=== PATIENT | male | born 1945 | race Caucasian/White ===

== ENCOUNTER → 2025-09-03 11:20 | Outpatient (REF) | payer OTHER, SELFPAY | LOC: HWRCS 11:20 | PROVIDERS: ATTENDING PHYSICIAN Nurse Practitioner; FAMILY PHYSICIAN Family Medicine | DX: R93.1 Abnormal findings on diagnostic imaging of heart and coronary circulation (principal) | CPT/HCPCS: 78452; 93017; A9500 ==

== ENCOUNTER → 2025-09-05 10:42 | Outpatient (REF) | payer OTHER, SELFPAY ==
[2025-09-05 11:19] LABS: Hematocrit 47.1 % (39.0-52.0); Hemoglobin 15.4 g/dL (13.0-18.0); Mean Corp Hgb Conc. 32.7 g/dL (33.0-37.0); Mean Corpuscular Volume 94.8 fL (80.0-94.0); Nucleated Red Blood Cells % 0 % (-); Platelet Count 264 10^3/uL (130-400); Red Cell Dist. Width 13.3 % (11.5-14.5)
[2025-09-05 11:35] LABS: INR 0.91; PT 12.8 Sec (11.4-14.6)
[2025-09-05 12:03] LABS: Blood Urea Nitrogen 20 mg/dl (9-20); Calcium 9.9 mg/dl (8.4-10.2); Carbon Dioxide 30 mmol/L (22-30); Chloride 103 mmol/L (98-107); Glucose 108 mg/dl (70-99); Potassium 4.5 mmol/L (3.5-5.1); Sodium 139 mmol/L (135-145); eGFR > 60.00
== END ==
LOC: REG 10:42
PROVIDERS: ATTENDING PHYSICIAN Nurse Practitioner
DX: R03.0 Elevated blood-pressure reading, without diagnosis of hypertension (principal); R93.1 Abnormal findings on diagnostic imaging of heart and coronary circulation; R94.39 Abnormal result of other cardiovascular function study
CPT/HCPCS: 36415; 71046; 80048; 85025; 85610

== ENCOUNTER 2025-09-12 06:15 | Day surgery (SDC) | payer OTHER, SELFPAY ==
[2025-09-12] VITALS (14 sets, daily range): BP systolic 115–159; BP diastolic 62–89; BMI 28.5
[2025-09-12] MEDS: LOW STRENGTH ASPIRIN 81 MG PO (07:06)
[2025-09-12] MEDS: NSS 1000 IV (08:27)
--- NOTE | 2025-09-12 09:45 | ITS.CL.CATH ---
[facility] - Catheterization
Cardiac Catheterization
Procedure Report:
LEFT HEART CATHETERIZATION
Date of Procedure: September 12, 2025
Procedures performed:
1: Coronary angiography
2: Left ventricular hemodynamic assessment
Primary Care Physician: Dr. Gail Gamez
Primary Process Server: Dr. Marcus Davison
INDICATION: The patient is an 79-year-old man with a past medical history significant for hypertension. He was noted to have heavy calcification of his femoral vessels on CAT scanning done in preparation for knee replacement surgery which was
performed earlier this year without complication. A calcium score was performed and was markedly elevated. This led to a nuclear perfusion stress test which was high risk and suggestive of multivessel coronary disease with myocardial perfusion
imaging suggestive of ischemia in the inferior, inferolateral, distal anterior and entire apical cap. Echocardiography showed normal LV systolic function with no significant valvular heart disease. The patient is fairly active and denies any
typical angina. He was noted to have some chest discomfort during the stress test but has not reported any symptoms since then. He was started on medical therapy with amlodipine and metoprolol along with statin and aspirin.
ACCESS: The patient was prepped and draped in usual sterile fashion. A 6 Thai sheath was placed in the right radial artery using the Seldinger over the wire technique.
HEMODYNAMIC FINDINGS (mmHg):
LV(s/d,EDP): 134/7, 11
Ao(s/d,m): 135/73, 101
ANGIOGRAPHIC FINDINGS:
Single-plane Left Ventriculography in SILVA Projection: Not done.
Coronary Angiography:
Dominance: Right
Left Main: The left main and proximal and mid LAD is heavily calcified throughout with diffuse circumferential calcification. The left main itself appears to have a tubular 30 to 40% diffuse stenosis.
Left Anterior Descending: The left anterior descending artery is a medium caliber vessel that gives rise to 1 major high diagonal branch and a smaller second agonal branch that takes off from the midportion. The proximal LAD is heavily calcified
throughout with smooth diffuse 40 to 50% proximal disease. The first diagonal branch has a high takeoff and is a large vessel that has moderate proximal disease with normal distal flow and appears to be a good surgical target. The LAD after the
takeoff of the diagonal branch has smooth disease with a focal 80% stenosis. The remainder of the vessel is patent with mild luminal irregularities. The distal LAD has normal flow.
Left Circumflex: The left circumflex is a medium caliber vessel that has diffuse proximal 50% disease. OM1 is a relatively small vessel that has critical ostial disease and may actually fill via bridging collaterals. This vessel appears too small
to bypass. The circumflex terminates into large second obtuse marginal branch that has diffuse moderate luminal irregularities with normal flow. There are 2 very well-developed large caliber collaterals that supply a very large right sided
posterior left ventricular branch system.
Right Coronary: The right coronary artery is a nondominant vessel with diffusely diseased and occluded at the acute margin. All distal collaterals come from the left.
Fluoroscopy Time (min): 2.9
Radiation Dose (mGy): 348
DAP (Gy.cm2): 28
Closure device: None. A TR band was applied for hemostasis at the right wrist.
Complications: None.
ASSESSMENT:
1: Severe obstructive multivessel coronary disease with good surgical targets in the right, LAD, diagonal and distal OM 2
2: Normal left ventricular filling pressures.
CONCLUSIONS and RECOMMENDATIONS:
1: Formal CT surgical evaluation for CABG. Given the fact that he is asymptomatic with normal LV function, we could consider medical therapy however his nuclear stress test was clearly high risk and this anatomy explains it.
2: Close clinical follow-up with Dr. Davison as scheduled.
Shelbi Van M.D.
Copy to: Dr. Gail Gamez
== END 2025-09-12 11:28 | disposition home or self-care (01) ==
LOC: CATH 06:15
PROVIDERS: ATTENDING PHYSICIAN Internal Medicine Cardiovascular Disease; FAMILY PHYSICIAN Family Medicine
DX: I25.10 Atherosclerotic heart disease of native coronary artery without angina pectoris (principal); I10 Essential (primary) hypertension; Z79.899 Other long term (current) drug therapy
CPT/HCPCS: 93458; C1769; C1894; Q9967

== ENCOUNTER 2025-09-24 05:03 | Inpatient (IN) | payer OTHER, SELFPAY ==
[2025-09-18 08:33] VITALS: BMI 28.9
[2025-09-18 09:29] LABS: Hematocrit 46.7 % (39.0-52.0); Hemoglobin 15.8 g/dL (13.0-18.0); Mean Corp Hgb Conc. 33.8 g/dL (33.0-37.0); Mean Corpuscular Volume 92.1 fL (80.0-94.0); Nucleated Red Blood Cells % 0 % (-); Platelet Count 274 10^3/uL (130-400); Red Cell Dist. Width 13.1 % (11.5-14.5)
[2025-09-18 09:33] LABS: Urine Character Clear (Clear)
[2025-09-18 09:41] LABS: INR 0.99; PT 13.4 Sec (11.4-14.6)
[2025-09-18 10:04] LABS: ALT (SGPT) 23 U/L (0-50); AST (SGOT) 22 U/L (17-59); Albumin 4.4 g/dl (3.5-5.0); Alkaline Phosphatase 66 U/L (38-126); Blood Urea Nitrogen 19 mg/dl (9-20); Calcium 9.6 mg/dl (8.4-10.2); Carbon Dioxide 25 mmol/L (22-30); Chloride 104 mmol/L (98-107); Estimated Creatinine Clearance 58 ml/min; Glucose 129 mg/dl (70-99); Potassium 3.9 mmol/L (3.5-5.1); Sodium 138 mmol/L (135-145); Total Protein 6.8 g/dl (6.3-8.2); eGFR > 60.00
[2025-09-18 10:38] LABS: Glycohemoglobin (HgbA1c) 5.6 % (4.0-5.9)
--- NOTE | 2025-09-18 11:13 | CM ---
spoke to pt in PAT, we discussed preop CABG teaching including sternal and driving restrictions. he is prev indep, lvies with his in a 2 story home with 1 step to enter. he has a cane and a walker to use if needed. he has the cardiac educ book,
soap and instructions. he is agreeable to a f/u visit from the ct transitional care nurse after dc. plan is for CABG 09/24, cm role explained and all questions answered.
[2025-09-24] VITALS (20 sets, daily range): BP systolic 82–157; BP diastolic 56–96; BMI 28.5
[2025-09-24] MEDS: BACTROBAN 2% OINTMENT 1 APPLIC NASAL ×2 (06:00→21:12)
[2025-09-24] MEDS: LOPRESSOR 25 MG PO (06:01)
[2025-09-24] MEDS: MAGNESIUM OXIDE 400 MG PO (06:01)
[2025-09-24] MEDS: PROTONIX 40 MG PO (06:02)
--- NOTE | 2025-09-24 06:09 | W.CVOR.SURPR ---
CVOR Surgeon Immed Pre Op
-
I have examined this patient prior to performance of the scheduled procedure.
The patient's condition is unchanged from the time of the dictated/written History and
Physical and the patient is able to undergo the scheduled procedure.
CABG + LAAE
--- NOTE | 2025-09-24 06:35 | PTCARENOTE ---
Pt admitted to CVICU at 0504. Pt's VS done. Pt clipped/prepped per CVICU protocol. Admission questions done. at bedside. Dr. Keys in to see pt. Pt escorted to CVICU at 0630 by CVOR RN and MEDICAL LAB DIRECTOR.
[2025-09-24 07:26] LABS: Urine Character Slightly Cloudy (Clear)
[2025-09-24 07:29] LABS: ACT+ - POC 118 Seconds (82-134)
[2025-09-24 08:03] LABS: Urine Squamous Cell 0-2 /LPF (Few)
[2025-09-24 08:04] LABS: Urine Red Blood Cell 26-30 /HPF (0-2); Urine White Cell 0-2 /HPF (0-5)
--- NOTE | 2025-09-24 08:28 | CM ---
Reviewed chart. Mr. Inman is in the operating room today. Prior to admission he resides with his spouse in a two story home with one step to enter. Prior to admission he was independent with ambulation and adls. He has a walker and single point
cane at home. Medical work-up in progress. The discharge plan is to return home with his spouse and a home visit by the Transitional Care Nurse when medically stable.
[2025-09-24 08:55] LABS: B.E. - POC -1.8 mmol/L; Glucose - POC 102 mg/dl (70-99); HCO3 - POC 23 mmol/L (21-28); Hematocrit - POC 38 % PCV (42-52); Hemodilution- POC No; Hemoglobin Calculated - POC 13.0; Ionized Calcium - POC 1.18 mmol/L (1.15-1.33); Lactate - POC 0.79 mmol/L (0.36-0.75); O2 Saturation %Calculated-POC 99.3 % (94-98); PCO2 - POC 36 mmHg (35-48); PO2 - POC 146 mmHg (83-108); POC Comment PRE; Potassium - POC 3.8 mmol/L (3.5-5.1); Sodium - POC 138 mmol/L (136-145); Specimen Type - POC Arterial; pH - POC 7.40 (7.35-7.45)
[2025-09-24 09:17] LABS: ACT+ - POC 845 Seconds (82-134)
[2025-09-24 09:31] LABS: ACT+ - POC 492 Seconds (82-134)
[2025-09-24 09:54] LABS: B.E. - POC 1.7 mmol/L; Glucose - POC 125 mg/dl (70-99); HCO3 - POC 25 mmol/L (21-28); Hematocrit - POC 32 % PCV (42-52); Hemodilution- POC Yes; Hemoglobin Calculated - POC 10.8; Ionized Calcium - POC 1.06 mmol/L (1.15-1.33); Lactate - POC 1.05 mmol/L (0.36-0.75); O2 Saturation %Calculated-POC 99.8 % (94-98); PCO2 - POC 32 mmHg (35-48); PO2 - POC 191 mmHg (83-108); POC Comment CPB; Potassium - POC 5.2 mmol/L (3.5-5.1); Sodium - POC 137 mmol/L (136-145); Specimen Type - POC Arterial; pH - POC 7.49 (7.35-7.45)
[2025-09-24 10:06] LABS: ACT+ - POC 674 Seconds (82-134)
[2025-09-24 10:16] LABS: B.E. - POC 1.0 mmol/L; Glucose - POC 145 mg/dl (70-99); HCO3 - POC 24 mmol/L (21-28); Hematocrit - POC 32 % PCV (42-52); Hemodilution- POC Yes; Hemoglobin Calculated - POC 10.8; Ionized Calcium - POC 1.05 mmol/L (1.15-1.33); Lactate - POC 1.28 mmol/L (0.36-0.75); O2 Saturation %Calculated-POC 99.9 % (94-98); PCO2 - POC 32 mmHg (35-48); PO2 - POC 274 mmHg (83-108); POC Comment WARM; Potassium - POC 5.1 mmol/L (3.5-5.1); Sodium - POC 138 mmol/L (136-145); Specimen Type - POC Arterial; pH - POC 7.49 (7.35-7.45)
[2025-09-24 10:22] LABS: ACT+ - POC 159 Seconds (82-134)
--- NOTE | 2025-09-24 10:31 | CON.INTV ---
Consultation
Consultation Request
Date/Time Consultation Requested: 09/24/2025 - 1025
Date/Time Consultation Performed: 09/24/2025 - 1029
Requesting Provider: Desiree Wood PA-C
Performing Provider: Dr. Pretty
Reason for Consultation: s/p CABG
Medical History
-
Chief Complaint: Elective CABG
History of Present Illness:
79-year-old male with a past medical history of CAD, gout and hypertension who presents for elective CABG. Patient known to cardiothoracic surgery service, with last office visit on 09/17/[address] Keys. Patient previously had a abnormal CT
calcium score study, which led to him getting a nuclear sestamibi stress test on 09/03/2025. Patient achieved 7 METS with 99% of maximum predicted heart rate although with below average exercise tolerance and the stress EKG was positive for
ischemia. Patient then underwent a left heart catheterization on 09/12/2025 showing severe obstructive multivessel CAD with normal LV filling pressures (LVEDP: 11 mmHg). Patient does have a good functional status, being active in sports including
softball and can tolerate daily activities without limitation. After further multidisciplinary team discussion, patient was recommended to undergo surgical revascularization, which the patient agreed to. Today, patient underwent CABG x 4 with left
atrial appendage ligation with a 35mm clip. Patient tolerated the procedure well, and was transferred to the CVICU postoperatively, with Hand Touch Up Painter service consulted for additional management/recommendations.
When I saw the patient, he had continued to be intubated on SIMV at 16/500/40%/5, with PIP 11 cmH2O, VTe 439 cc and breathing at 33 breaths/min. He is easily arousable/calm although still overall lethargic. Current heart rate 68, BP via A-line:
102/63, BP via NIBP: 109/73 + SpO2 100%. He has a left pleural chest tube x 1 as well as mediastinal chest tubes x 2. Currently on insulin drip at 0.6 units/hr and on Levophed at 8 mcg/min.
PMHx: Gout, hypertension, CAD
PSHx: Right knee replacement + left knee replacement, cataract removal, prostate biopsy, cardiac cath
Past Medical History
Past Medical History: Other (Above as per HPI)
Past Surgical History: Other (Above as per HPI)
Social History
Tobacco: Former Smoker (Quit smoking in 1972)
Alcohol: Occasional (1 drink per week)
Drug: None
Employment: Retired
Family History
Family History: Hypertension (Father)
Allergies / Home Medications
Allergies
Allergy/AdvReac Type Severity Reaction Status Date / Time
iodine povacrylex (From Allergy Intermediate Hives Verified 09/24/25 09:27
DuraPrep)
isopropyl alcohol (From Allergy Intermediate Hives Verified 09/24/25 09:27
DuraPrep)
Home Medications
�Medication �Instructions �Recorded �Confirmed �Last Taken �Type
allopurinol 100 mg tablet 100 mg PO DAILY 09/12/25 09/24/25 09/23/25 08:30 History
amlodipine 2.5 mg tablet 2.5 mg PO DAILY 09/12/25 09/24/25 09/21/25 08:30 History
aspirin 81 mg tablet 81 mg PO DAILY 09/12/25 09/24/25 09/23/25 08:30 History
metoprolol succinate 25 mg 25 mg PO DAILY 09/12/25 09/24/25 09/23/25 09:00 History
tablet,extended release 24 hr
rosuvastatin 20 mg tablet 20 mg PO DAILY 09/12/25 09/24/25 09/23/25 08:30 History
Review of Systems
-
Unable to Obtain full review of systems at this time due to: Patient Intubation
Vitals / Labs / Diagnostic Testing
Vital Signs
Temp Pulse Resp BP Pulse Ox
98.1 F 90 18 157/89 96
09/24/25 05:04 09/24/25 06:01 09/24/25 05:04 09/24/25 06:01 09/24/25 05:05
Diagnostic Testing:
Physical Exam
-
HEENT: Normocephalic, Anicteric and Other (ETT in place)
Cardiovascular: S1/S2 and Peripheral Edema (negative)
Respiratory: Wheeze (negative), Rhonchi (negative), Non-Labored Respirations, Other (Mechanical breath sounds heard bilaterally) and Other (Mediastinal chest tubes x 2 and left pleural chest tube x 1)
GI: Soft, Non Distended, Non Tender and Normal Bowel Sounds
Neurology: Tremors (negative) and Other (Sedated)
Skin: Warm and Dry
General: Respiratory Distress (negative), Comfortable, Fever (negative) and Chills (negative)
Assessment
-
Assessment: 79-year-old male with a past medical history of CAD, gout and hypertension who presents for elective CABG. Patient known to cardiothoracic surgery service, with last office visit on 09/17/[address] Keys. Patient previously had a
abnormal CT calcium score study, which led to him getting a nuclear sestamibi stress test on 09/03/2025. Patient achieved 7 METS with 99% of maximum predicted heart rate although with below average exercise tolerance and the stress EKG was positive
for ischemia. Patient then underwent a left heart catheterization on 09/12/2025 showing severe obstructive multivessel CAD with normal LV filling pressures (LVEDP: 11 mmHg). Patient does have a good functional status, being active in sports
including softball and can tolerate daily activities without limitation. After further multidisciplinary team discussion, patient was recommended to undergo surgical revascularization, which the patient agreed to. Today, patient underwent CABG x 4
with left atrial appendage ligation with a 35mm clip. Patient tolerated the procedure well, and was transferred to the CVICU postoperatively, with Hand Touch Up Painter service consulted for additional management/recommendations
Chronic conditions LITIGATION SECRETARY: Gout, hypertension, CAD
Impression:
#Multivessel CAD s/p CABG x 4 (in-situ CARRION to LAD, Ao to RSVG to high diagonal sequential to OM, Ao to RSVG to RPDA) + left atrial appendage ligation with 35mm clip - POD #0
#Hypocalcemia
#Right upper lobe 4mm lung nodule (seen on pre-operative CT chest from 09/20/2025)
#Hypertension
#Gout
Plan:
Ventilator settings reviewed
FiO2 will be weaned to maintain SpO2 >90-94%
Minute ventilation will be adjusted
Arterial blood gases will be monitored
Spontaneous breathing trial will be attempted with hopeful extubation after anesthesia/sedation wear off
prn nebulized bronchodilators - not currently bronchospastic
Pulmonary artery catheter parameters will be followed
Pressors/antihypertensive/inotropes/diuretics will be provided as needed
Maintain MAP>65
Replete electrolytes with K>4, Mg>2
Monitor chest tube output
Monitor hemoglobin
Monitor platelet count and coags
Transfuse blood products as needed to maintain Hb>7g/dL, plt>50k (given post-operative status)
CT surgery managing chest tubes
Monitor blood sugar to maintain euglycemia with goal BG 110-140
Insulin drip per protocol
Regarding patient's small lung nodule seen in his posterior RUL from recent CT chest on 09/20/2025, I will see him in the pulmonary office to discuss next apps.
Aspiration precautions
VAP prevention protocol
DVT prophylaxis
Early nutrition
Early mobilization
Critical care statement: A total of 41 minutes of critical care time was provided for this patient today. This includes management of ventilator, spontaneous breathing trial, arterial blood gases, pressors, of unstable vital signs, evaluation of the
patient at bedside, reviewing the patient's pertinent medical records including radiographs, microbiology, laboratory evaluations, and discussion with primary team and critical care nursing.
--- NOTE | 2025-09-24 10:35 | W.PN.CT.SURG ---
CT Surgery Operative Note
-
CARDIAC SURGERY OPERATIVE REPORT
Preoperative Diagnosis: Multivessel Coronary Artery Disease with abnormal stress test
Postoperative Diagnosis: Same
Procedure(s) Performed:
1. Standard Sternotomy with Aortic and Right Atrial Cannulation
2. Internal Mammary Artery Harvesting, Left
3. Coronary artery bypass grafting x 4 (In situ CARRION to LAD, Ao to RSVG to high diagonal sequential to OM, Ao to RSVG to RPDA)
4. Endoscopic vein harvesting of right lower extremity
5. Transesophageal echocardiography
6. Placement of Temporary Ventricular Pacing Wires
7. Left atrial appendage ligation [35 mm clip, [id number]]
Date of Surgery: 09/24/2025
Comorbidities:
1. Multivessel coronary disease with abnormal stress test
2. Hypertension
3. Gout
4. Orthopedic issues
Attending Surgeon: Mark Keys MD, MS
Assistants: Yu Andrews MD (PGY 2 (Cardiac Surgery Resident, opened, part of carrion dissection, closure), Jae Cleveland PA-C (present and necessary to surgical first assistant, retraction, suction, exposure, suture management, and wound closure under my direction),
Nadia Bean PA-C (endovein harvest)
Anesthesiology: Mode Llamas MD and Rafael Oquendo CRNA
Scrub and Circulating RNs: Lasha Aguirre RN, Jojo Rodriguez RN
Customer Response Representative: Dang Burton CCP
Anesthesia: GETA
EBL: per perfusion records
Products: None, 2 cell saver bowls
CPB Time: 74 minutes
Aortic Cross Clamp Time: 60 minutes
Indication(s) for Procedures: This is an 79-year-old male who was incidentally found to have significant calcifications on his coronary CT scan. A stress test revealed there is abnormal perfusion that led to left heart catheter, multivessel
obstructive coronary artery disease. He is referred to me for consideration of CABG. Due to his elevated [id number] score his left atrial appendage was planned to be ligated at time of surgery.
Conduit(s) Quality:
CARRION -excellent, skeletonized
RSVG -good, overall uniform with there is a small segment that had some varicosities and it was smaller in caliber
Target(s) Quality:
RCA/PDA -good, accommodated 1.5 mm probe excellent flow with test dose of antegrade to a mean flow of approximately 40 cc a minute at a pressure 80 mmHg
OM -good, smaller size target accommodating a 1 mm probe, flow here was approximately 35 cc a minute with a pressure of 80 mmHg
High diagonal -excellent good-sized quality target accommodating 1.5 mm probe test dosing of antegrade down here had a flow approximately 40 cc a minute with a mean pressure of 80 mmHg
LAD -excellent, had to grafted distally as it was heavily calcified proximally into the midportion., Good visual flow in the LAD territory with backfilling into the second diagonal vessels.
Findings: Left ventricular ejection fraction preoperatively was 60% with no significant regional wall motion abnormalities. There was some mild left ventricular hypertrophy and aortic valve sclerosis without significant stenosis. Left ventricular
ejection fraction postoperatively was 60% with no new regional wall motion abnormalities. The CARRION was harvested in a skeletonized fashion. Following bypass grafting, test dose cardioplegia was given down each distal and confirmed patency and
hemostasis. Each distal was probed both proximally and distally to confirm disease and patency, respectively. He regained his normal sinus rhythm and did not require pacing. Two bowls of Cell Saver scavenged blood from the field was given back to
the patient, no blood products were transfused. The left atrial appendage was verified be free of any thrombus or debris preoperatively and found to be totally occlusive postoperatively.
Description of Procedure: The patient was taken to the operating room. Their identity and procedure to be performed were verified and they were positioned supine on the operating table. Induction via general anesthesia with endotracheal intubation
was performed and central venous access and arterial monitoring were inserted. A preoperative transesophageal echocardiogram was performed to assess cardiac function and valvular function. The patient was then prepped and draped from chin to feet in
a sterile fashion. A preoperative time-out was performed with all members of the team present. A midline chest incision was performed along with median sternotomy. Simultaneous endoscopic access of the right lower extremity for saphenous vein
harvest was obtained along with administration of an initial 5,000 units of IV heparin. A RulTract sternal retractor was positioned to exposure the left internal mammary bed. The mammary was harvested and found to have good flow. A bulldog clamp was
applied to the distal end of the mammary after dividing it. It was wrapped in a papaverine soaked RayTec and replaced back into the left hemithorax. The RulTract was exchanged for a median sternal retractor. The innominate vein was isolated. Full
heparinization was given (a total of 55,000 units). We created a pericardial well. The aortic cannulation site was chosen where it was soft, pliable, and free of calcium. Cannulation was performed with an arterial cannula in the ascending aorta and
a triple-stage venous cannula through the right atrial appendage. The arterial cannula line had an appropriate bounce and correlating pressures with test dosing. Next, a root vent/antegrade cannula was inserted into the ascending aorta. The ACT was
confirmed to be over 400 and retrograde autologous priming was performed before commencing cardiopulmonary bypass. The pulmonary artery was away from the aorta to facilitate a clamp site. The aortic cross-clamp was placed after decreasing
the flow on the bypass and mean arterial pressure. A total of 1.2L initial dose of antegrade Del-Nido cardioplegia solution was given and planned for re-dosing every 75 minutes as necessary. There was rapid electro-mechanical arrest of the heart at
400 cc of cardioplegia. The left ventricle was observed for distention on echocardiogram and manual palpation. Cold slush was placed into a sponge and topically on the RV while we systemically cooled to 34 degrees centigrade.
I positioned the heart to expose the distal right coronary at the posterior descending artery. A nikolai blade was used to expose the coronary and perform the arteriotomy. Coronary Avalos scissors were used to enlarge the incision. The saphenous vein
was trimmed and beveled to an appropriate size. The distal anastomosis was performed using 7-0 prolene in an end-to-side fashion. Antegrade cardioplegia was administered into the graft. Appropriate hemostasis and flow were confirmed. The graft was
measured for length to the aorta and cut. A suitable site on the obtuse marginal was chosen. We dissected and prepared the distal target in a similar fashion. An end-to-side anastomosis was created with a 7-0 prolene. Antegrade cardioplegia was
administered into the graft. Appropriate hemostasis and flow were confirmed. I then measured the graft to accommodate high diagonal sequential target. The diagonal was repaired in a similar fashion and the underbelly of the vein graft was incised.
A [id number]-[id number] anastomosis was created with 7-0 Prolene in a running fashion. A bulldog was used to occlude the distal end of the sequential graft and test oh centimeters cardioplegia was given down the graft which yielded excellent flow and
hemostasis. Bulldog was then removed. The graft was measured for length to the aorta and cut. A suitable target on the distal left anterior descending was identified. We dissected and prepared the distal target in a similar fashion. The left
atrial appendage was then ligated here. We retrieved the CARRION from the chest and created a pericardial opening while being cognizant of the phrenic nerve to facilitate the course of the mammary. The distal end of the mammary was prepped and beveled
to size. We verified orientation and length of the MARY JO and found brisk flow. An end-to-side anastomosis was created with a 7-0 prolene. We temporarily released the bulldog clamp on the mammary to inspect flow. Perfusion to the LAD territory was
visualized and hemostasis was confirmed. The bull clamp was replaced on the mammary. The heart was filled and the root was distended with antegrade cardioplegia to make final assessment of graft length and orientation. We created 2 aortotomies using
a #11 blade then a 4.0mm aortic punch. The proximal anastomoses were created in an end-to-side fashion using 6-0 prolene. At the the same time, we re-warmed to 36.5 degrees centigrade. The bulldog clamp was removed from the mammary. Temporary
bipolar ventricular pacing wires were placed on the base of the right ventricle. The patient was placed in a Trendelenburg position and flows on bypass were lowered. The aortic cross clamp was removed and flows were slowly brought back up. A
30-gauge needle was used to de-air the vein grafts. All bypass grafts were inspected and were free from kinking or twisting. The distal and proximal anastomoses appeared hemostatic. Once transesophageal echocardiography appeared satisfactory for
de-airing, the flows were temporarily lowered for root vent removal. After verifying acceptable parameters, we initiated weaning from cardiopulmonary bypass. Once we were off cardiopulmonary bypass, the venous cannula was clamped and removed. A test
dose of protamine was administered and the patient was monitored for any adverse reaction before resuming protamine. Once half of the protamine dose was delivered, pump suckers were turned off and the systolic blood pressure was lowered for aortic
decannulation. The aortic cannula was removed and pursestrings were tied down. All cannulation sites were oversewn with a 4-0 prolene. The mammary bed was inspected and hemostasis was confirmed. Once the mediastinum was hemostatic, 19Fr Marco A drain
was placed in the left pleural cavity and two 24Fr Marco A drains were placed within the pericardium. The sternum was approximated with 8 #7 single stainless steel wires. Fascia was approximated with #1 vicryl suture. The subcutaneous, dermis and
epidermis were closed in layers in a running fashion. The skin wound was cleansed and dressed.
All instrument, sponge, and needle counts were confirmed to be correct x 2 at the end of the operation. The patient was transferred to the cardiac intensive care unit in critical but stable condition.
I, Dr. Mark Keys, was present, scrubbed for, and performed all critical elements of this procedure.
Mark Keys MD, MS
Cardiothoracic Surgeon
[facility]
This operative dictation was created using the [email or web address] dictation system. Please excuse any grammatical, typographical, or 'sound alike' errors
[2025-09-24 10:53] LABS: B.E. - POC -1.6 mmol/L; Glucose - POC 142 mg/dl (70-99); HCO3 - POC 24 mmol/L (21-28); Hematocrit - POC 31 % PCV (42-52); Hemodilution- POC Yes; Hemoglobin Calculated - POC 10.5; Ionized Calcium - POC 1.27 mmol/L (1.15-1.33); Lactate - POC 1.39 mmol/L (0.36-0.75); O2 Saturation %Calculated-POC 99.9 % (94-98); PCO2 - POC 40 mmHg (35-48); PO2 - POC 258 mmHg (83-108); POC Comment POST; Potassium - POC 4.5 mmol/L (3.5-5.1); Sodium - POC 138 mmol/L (136-145); Specimen Type - POC Arterial; pH - POC 7.37 (7.35-7.45)
[2025-09-24 11:13] LABS: ACT+ - POC > 1003 Seconds (82-134)
[2025-09-24 11:25] LABS: B.E. - POC 1.3 mmol/L; Glucose - POC 99 mg/dl (70-99); HCO3 - POC 24 mmol/L (21-28); Hematocrit - POC 31 % PCV (42-52); Hemodilution- POC Yes; Hemoglobin Calculated - POC 10.7; Ionized Calcium - POC 1.01 mmol/L (1.15-1.33); Lactate - POC < 0.30 mmol/L (0.36-0.75); O2 Saturation %Calculated-POC 100.0 % (94-98); PCO2 - POC 32 mmHg (35-48); PO2 - POC 442 mmHg (83-108); POC Comment CPB; Potassium - POC 5.0 mmol/L (3.5-5.1); Sodium - POC 137 mmol/L (136-145); Specimen Type - POC Arterial; pH - POC 7.49 (7.35-7.45)
[2025-09-24 11:27] LABS: Glucose - Point of Care 114 mg/dl (70-99)
[2025-09-24 11:35] LABS: B.E. -2.2 mmol/L; HCO3 22.4 mmol/L (21-28); O2 Saturation % 99.8 % (94-98); PCO2 37 mmHg (35-48); PO2 145 mmHg (83-108); Potassium 4.4 mMOL/L (3.5-5.1); Sodium 135 mMOL/L (136-145)
--- NOTE | 2025-09-24 11:46 | W.PN.UPDATE ---
Update Note
Progress Note Update
79 year old male was electively admitted 09/24/25 fo rCABG for multivessel coronary disease
IV fluids: 1500
U.O.:� 400
Blood:� cell saver 500
Wires:� bipolar V-wire
Drips: Levo @ 4, Insulin @ 1, Precedex @ 0.5
�
NEURO: sedated, pupils +2mm B/L
RESP: #8OT @24cm> 500/40%/14/5. Lungs clear B/L. 2 mediastinal (5cc on arrival) and L pleural (0cc on arrival) chest tubes to -20cm suction. Sanguineous drainage
CV: RRR +S1, S2, no S3, no�rub, no murmur. Dermabond to median sternotomy. RIJ w/Slik
ABD: round, soft, no BS
EXT: no edema, +2/4 DP pulses B/L, no femoral bruit, RLE NATE wrap intact; R medial thigh right radial A-line intact
: Deutsch with clear yellow urine
�
A/P: POD #0 s/p CABG x 4 (CARRION to LAD, SVG to high diagonal sequential to OM, SVG to RPDA), left atrial appendage ligation #35 mm clip
REMY: report pending
- wean and extubate
- Insulin infusion x 24h as not diabetic
# CAD
- will require ASA, Plavix, statin (crestor 20mg home dose), beta josé miguel
�
# acute surgical blood loss anemia-expected
- trend CBC
�
# Gout
- resume Allopurinol 100mg daily when taking solids
�
# Hyperlipidemia
- resume�
[2025-09-24 11:48] LABS: Blood Urea Nitrogen 15 mg/dl (9-20); Estimated Creatinine Clearance 72 ml/min; Glucose 116 mg/dl (70-99); Magnesium 2.6 mg/dl (1.6-2.3)
[2025-09-24 11:49] LABS: Hematocrit 38.4 % (39.0-52.0); Hemoglobin 13.2 g/dL (13.0-18.0); Platelet Count 188 10^3/uL (130-400)
[2025-09-24 11:59] LABS: APTT 32.3 Sec (23.4-35.0); INR 1.68; PT 20.0 Sec (11.4-14.6)
--- NOTE | 2025-09-24 12:00 | PTCARENOTE ---
Patient received from [facility]OR at 1115; Sedated and intubated; NSR on monitor; Vwire attached to pacer box; VSS; palpable DP and radial pulses present; Lungs diminished at bases; ETT size 8 positioned and secured at 22 cm R lip; Ventilator settings SIMV
16/500/5/FiO2 40%; CTx3 to -20 cm wall suction draining bloody drainage - both chest tubes +1 air leak; Hypoactive BS; Deutsch catheter in place draining clear, yellow urine; Sternal incision glued, approximated, and CDI, right groin puncture bleeding
& glued at bedside pressure held for 20 mins, RLE incision wrapped in NATE wrap - CDI; R radial A-line in place, Benjamin & DORIS Cordis WNL - all lines zeroed and leveled; PIVx1; Levo/insulin/precedex infusing - see nursing flowsheets for further
details; see nursing documentation for further details.
[2025-09-24 12:13] LABS: Glucose - Point of Care 107 mg/dl (70-99)
--- NOTE | 2025-09-24 12:13 | W.PN.CARDCBS ---
Addendum entered and electronically signed by Pauline Tipton DO 09/24/25 13:28:
I saw and examined the patient.
The Office Asst's note was reviewed and I agree with the note.
Comment: Patient was seen and examined. Remains intubated with sedation being weaned and he opens eyes to verbal stimuli. On Levophed at 7. Reviewed operative notes.
GEN: intubated, sedation being weaned
HEENT: +ETT
LUNGS: Bronchovesicular breath sounds.
CV: Reg, S1/S2, +rub
ABD: soft, BS+, NT/ND
EXT: No edema, LEs cool
NEURO: Gross non-focal
SKIN:sternal incision well approximated
Plan:
Plan:
79-year-old male with multivessel CAD, hypertension, gout, now postop day 0 s/p CABG x 4 and left atrial appendage ligation
-no Intraop blood products
-wean Levophed gtt
-wean to extubate
-Postop EKG: Normal sinus rhythm, cannot rule out inferior infarct
-Telemetry NSR 60s-70s
-ASA/plavix
-high intensity statin for goal LDL <55
-Amio prophylactically post op
-eventual cardiac rehab
Addendum entered and electronically signed by MARÍA Desai 09/24/25 13:23:
added Dr Tipton to note for cosign
Original Note:
Today's Communication / Plan
-
post op care
extubate
Impression / Plan
-
PCP: Gail Gamez
Primary line camera operator: Marcus Davison
Impression:
Severe obstructive multivessel coronary artery disease
Status post CABG x 4 (CARRION to LAD, AO to RSVG to high diagonal sequential to OM, AO to RSVG to RPDA) and TITA ligation 09/24/2025
Hypertension
Gout
Elevated calcium score prompting stress test with perfusion defect prompting left heart cath notable for severe obstructive multivessel CAD
Previous cardiovascular testing:
Echo 08/27/2025: Normal LV/RV size and function, LVEF 60 to 65%, no significant valvular heart disease, aorta 3.9 cm at sinus of Valsalva, 3.7 cm at proximal segment of ascending aorta
Left heart cath 09/12/2025: Left main and proximal mid LAD heavily calcified with diffuse circumferential calcification. Left main with tubular 30 to 40% diffuse stenosis.
LAD: Proximal LAD heavily calcified with 40 to 50% proximal disease. D1 large vessel with moderate proximal disease. LAD after takeoff of diagonal branch with focal 80% stenosis.
Left circumflex: Diffuse proximal 50% disease. OM1 small vessel with critical ostial disease and may fill via bridging collaterals. OM 2 diffuse moderate LI's. 2 very well develop large caliber collaterals that supply large right sided posterior
left ventricular branch system.
RCA: Diffusely diseased and occluded at acute margin. All distal collaterals come from the left.
Plan:
79-year-old male with multivessel CAD, hypertension, gout, now postop day 0 s/p CABG x 4 and left atrial appendage ligation
-No Intraop blood products
-on Levophed @ 8
-remains intubated
-Postop EKG: Normal sinus rhythm, cannot rule out inferior infarct
-Telemetry personally reviewed: NSR 60s-70s
-ASA/plavix
-high intensity statin for goal LDL <55
-Amio prophylactically post op
-eventual cardiac rehab
Progress Note - Moth Proofer
Subjective
Date of Service: September 24, 2025
intubated
Objective
Labs:
09/24/25 11:25
Labs
Hgb 13.2 g/dL (13.0-18.0) 09/24/25 11:25
Hct 38.4 % (39.0-52.0) L 09/24/25 11:25
Plt Count 188 10^3/uL (130-400) D 09/24/25 11:25
PT 20.0 Sec (11.4-14.6) H 09/24/25 11:25
INR 1.68 09/24/25 11:25
APTT 32.3 Sec (23.4-35.0) 09/24/25 11:25
Sodium 138 mmol/L (135-145) 09/18/25 08:44
Potassium 3.9 mmol/L (3.5-5.1) 09/18/25 08:44
BUN 15 mg/dl (9-20) 09/24/25 11:
Creatinine 0.8 mg/dL (0.7-1.3) 09/24/25 11:25
Glucose 116 mg/dl (70-99) H 09/24/25 11:25
Vital Signs and I&O:
Vital Signs
Temp Pulse Resp BP Pulse Ox
98.1 F 90 18 157/89 96
09/24/25 05:04 09/24/25 06:01 09/24/25 05:04 09/24/25 06:01 09/24/25 05:05
Vital Signs
Temp Pulse Resp BP Pulse Ox
98.1 F 90 18 157/89 96
09/24/25 05:04 09/24/25 06:01 09/24/25 05:04 09/24/25 06:01 09/24/25 05:05
Intake & Output
09/22/25 09/23/25 09/24/25 09/25/25
06:59 06:59 06:59 06:59
Output Total 310 / 310
Balance -310 / -310
Physical Exam
Physical Exam
GEN: intubated
HEENT: supple, anicteric, mmm
LUNGS: decreased BS
CV: Reg, S1/S2, +rub
ABD: soft, BS+, NT/ND
EXT: No edema, LEs cool
NEURO: Gross non-focal
SKIN:sternal incision well approximated
[2025-09-24] MEDS: CALCIUM GLUCONATE 100 IV (12:14)
[2025-09-24 13:17] LABS: Glucose - Point of Care 94 mg/dl (70-99)
[2025-09-24 14:18] LABS: Glucose - Point of Care 114 mg/dl (70-99)
[2025-09-24] MEDS: DILAUDID 0.5 MG IV (14:54)
[2025-09-24] MEDS: ZYLOPRIM PO (15:09)
[2025-09-24] MEDS: LR 250 ML IV (15:09)
[2025-09-24] MEDS: CRESTOR PO (15:10)
[2025-09-24 15:28] LABS: Glucose - Point of Care 104 mg/dl (70-99)
[2025-09-24 15:57] LABS: B.E. - POC -3.6 mmol/L; Blood Urea Nitrogen - POC 15 mg/dl (3-120); Chloride - POC 108 mmol/L (96-111); Creatinine - POC 0.96 mg/dl (0.3-1.0); Glucose - POC 142 mg/dl (70-99); HCO3 - POC 21 mmol/L (21-28); Hematocrit - POC 39 % PCV (42-52); Hemodilution- POC No; Hemoglobin Calculated - POC 13.3; Ionized Calcium - POC 1.25 mmol/L (1.15-1.33); Lactate - POC 1.80 mmol/L (0.36-0.75); O2 Saturation %Calculated-POC 99.0 % (94-98); PCO2 - POC 35 mmHg (35-48); PO2 - POC 131 mmHg (83-108); Potassium - POC 4.2 mmol/L (3.5-5.1); Sodium - POC 140 mmol/L (136-145); Specimen Type - POC Arterial; pH - POC 7.38 (7.35-7.45)
[2025-09-24] MEDS: PACERONE PO (16:00)
[2025-09-24] MEDS: NEURONTIN PO (16:00)
[2025-09-24 16:05] LABS: Hematocrit 39.4 % (39.0-52.0); Hemoglobin 13.7 g/dL (13.0-18.0); Platelet Count 222 10^3/uL (130-400)
--- NOTE | 2025-09-24 16:10 | RESPNOTE ---
patient extubated at 1610 without incident. 100% on 6L.
[2025-09-24] MEDS: LEVOPHED 250 IV (16:38)
--- NOTE | 2025-09-24 16:41 | PTCARENOTE ---
Placed on Cpap @ 1520 extubated @ 1410 AAOx3 w/ complaints of pain; following all commands
[2025-09-24 17:28] LABS: Glucose - Point of Care 113 mg/dl (70-99)
[2025-09-24] MEDS: LOW STRENGTH ASPIRIN 81 MG PO (17:48)
[2025-09-24] MEDS: OFIRMEV 100 IV (17:48)
[2025-09-24 19:03] LABS: Glucose - Point of Care 137 mg/dl (70-99)
--- NOTE | 2025-09-24 20:16 | PTCARENOTE ---
received pt from previous rn. pt AAOx4. NSR per tele monitor HR 70s. V wire set to a back up for 30/10. +pulses throughout. pox 98-100% on 2L NC. CTx3 to -20 cm wall suction. +1 air leak. Hypoactive bs. Deutsch draining clear yellow urine. all
surgical sites in tact. CT dressing intact. RIJ cordis w/ SLIC intact. R radial a-line intact. all lines leveled, zeroed, and flushed. PIV infusing insulin per glycemic protocol. plan of care discussed and questions encouraged. call staples within
reach. see worklist and flowsheet for full nursing assessment, I&Os, and nursing interventions.
[2025-09-24] MEDS: ANCEF 5 IV (20:32)
[2025-09-24] MEDS: CALCIUM GLUCONATE 130 MG IV (20:33)
[2025-09-24] MEDS: SODIUM BICARBONATE 50 MEQ IV (20:33)
[2025-09-24 21:03] LABS: Glucose - Point of Care 101 mg/dl (70-99)
[2025-09-24] MEDS: TYLENOL PO (21:12)
[2025-09-24] MEDS: NEURONTIN 100 MG PO (21:12)
[2025-09-24] MEDS: PACERONE 200 MG PO (21:12)
[2025-09-24] MEDS: SENOKOT PO ×2 (21:12→21:16)
[2025-09-24] MEDS: NSS 250 IV (21:39)
[2025-09-24 22:58] LABS: Glucose - Point of Care 89 mg/dl (70-99)
[2025-09-25] VITALS (22 sets, daily range): BP systolic 89–163; BP diastolic 51–77; PULSE 89; O2SAT 96–98; BMI 29.9
[2025-09-25] MEDS: TYLENOL 650 MG PO (00:15)
--- NOTE | 2025-09-25 00:31 | PTCARENOTE ---
pt reassessed. VSS. NSR per tele monitor HR 60s. pt c/o mild incision pain. See MAR. assessment remains unchanged
--- NOTE | 2025-09-25 00:43 | W.PN.CT ---
Today's Communication / Plan
-
Plan:
-No major issues overnight. Hemodynamically and neurologically intact
-Pt successfully extubated on 09/24/25 @ 1610
-Weaned off Levophed overnight. Remains on insulin gtt per protocol
-No swan, u/o since OR 950 mL
-Cont. current meds (ASA, Plavix, Crestor, Lopressor, Amiodarone, Allopurinol)
-Monitor chest tube output: 2meds 145/240, L pleural . F/U CxR
-D/C'd SLIC/A-line this AM @ 0630
-D/C bearden catheter later today given hx of prostate Ca to avoid urinary retention
-Will d/c insulin gtt today per protocol
-Will maintain temporary PW (likely pull tomorrow)
-Encourage use of IS
-Wean off of O2
-OOB into chair/Ambulate
Assessment / Plan
-
Assessment:
-S/P Standard Sternotomy/Coronary artery bypass grafting x 4 (In situ CARRION to LAD, Ao to RSVG to high diagonal sequential to OM, Ao to RSVG to RPDA)/Endoscopic vein harvesting of right lower extremity/Left atrial appendage ligation [35 mm clip, SN
[id number]], by Dr. Keys, 09/24/25, pod#1
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
-Hypertension
-HLD
-Gout
-LVEF 60%
-Former tobacco use
-Prostate Ca S/P prostate seeding
-S/P Left knee replacement, 03/09/25
-S/P Right knee replacement, 05/2024
-S/P bilateral cataracts
-S/P Cardiac cath 09/12/25
-Acute postop blood loss/Anemia (2 bowels of cell saver)
-Acute postop atelectasis
-Acute postop hypovolemia with subsequent hypervolemia
-Acute postop hyponatremia
Discussed patient care with: Cardiology, Nursing, Respiratory Therapy, Pharmacy and Care Team
Subjective
Procedure
S/P Standard Sternotomy/Coronary artery bypass grafting x 4 (In situ CARRION to LAD, Ao to RSVG to high diagonal sequential to OM, Ao to RSVG to RPDA)/Endoscopic vein harvesting of right lower extremity/Left atrial appendage ligation [35 mm clip, SN
[id number]], by Dr. Keys, 09/24/25
-
Date of Service: September 25, 2025
Pt c/o incisional pain, otherwise feels well
Objective Data
-
PT 20.0 Sec (11.4-14.6) H 09/24/25:
INR 1.68 09/24/25:
APTT 32.3 Sec (23.4-35.0) 09/24/25:
Vital Signs
Vital Signs
Temp Pulse Resp BP Pulse Ox
99.3 F 67 16 100/54 98
09/25/25 00:00 09/25/25 00:00 09/25/25 00:00 09/25/25 00:00 09/25/25 00:00
CT Intake/Output/Weight
09/24/25 09/24/25 09/25/25
06:59 18:59 06:59
Intake Total 46.3 / 699.1 652.8 / 699.1
Output Total 835 / 1165 330 / 1165
Balance -788.7 / -465.9 322.8 / -465.9
SaO2: 98 (2L)
Physical Exam
-
General: Awake, Oriented and AOx3
Cardiovascular: Regular rate & rhythm, No Murmurs, No Rub and No Gallop
Respiratory: Decreased Breath Sounds (at bases, otherwise clear)
Sternum: Stable
Incision: Clean, Dry, Intact and Dressing Intact
Extremities: Other (+trace edema)
Data Reviewed
-
Lab Results: Results Reviewed
Medications: Active Meds Reviewed
Chest X-Ray: Report Reviewed and Image Reviewed
ECG: Report Reviewed and Image Reviewed
[2025-09-25 01:01] LABS: Glucose - Point of Care 106 mg/dl (70-99)
[2025-09-25] MEDS: ANCEF 5 IV ×2 (02:08→09:24)
[2025-09-25 03:06] LABS: Glucose - Point of Care 86 mg/dl (70-99)
[2025-09-25 03:16] LABS: Hematocrit 33.0 % (39.0-52.0); Hemoglobin 11.4 g/dL (13.0-18.0); Mean Corp Hgb Conc. 34.5 g/dL (33.0-37.0); Mean Corpuscular Volume 91.4 fL (80.0-94.0); Platelet Count 178 10^3/uL (130-400); Red Cell Dist. Width 12.9 % (11.5-14.5)
[2025-09-25 03:25] LABS: INR 1.28; PT 16.3 Sec (11.4-14.6)
[2025-09-25 03:34] LABS: Blood Urea Nitrogen 22 mg/dl (9-20); Calcium 8.9 mg/dl (8.4-10.2); Carbon Dioxide 25 mmol/L (22-30); Chloride 107 mmol/L (98-107); Estimated Creatinine Clearance 58 ml/min; Glucose 107 mg/dl (70-99); Magnesium 2.1 mg/dl (1.6-2.3); Potassium 4.1 mmol/L (3.5-5.1); Sodium 133 mmol/L (135-145); eGFR > 60.00
[2025-09-25] MEDS: CALCIUM GLUCONATE 100 IV (04:00)
--- NOTE | 2025-09-25 04:39 | PTCARENOTE ---
pt reassessed. VSS. NSR per tele monitor HR 60s. +[address]- medsx2 resolved. AM labs sent. EKG obtained. assessment remains unchanged.
[2025-09-25 05:00] LABS: Glucose - Point of Care 108 mg/dl (70-99)
[2025-09-25] MEDS: TYLENOL 975 MG PO ×3 (05:53→20:03)
[2025-09-25 06:04] LABS: Glucose - Point of Care 98 mg/dl (70-99)
--- NOTE | 2025-09-25 06:40 | PTCARENOTE ---
A-line and SLIC removed.
[2025-09-25 07:01] LABS: Glucose - Point of Care 104 mg/dl (70-99)
--- NOTE | 2025-09-25 07:22 | W.PN.ANS.POP ---
Anesthesia Post Operative
- Anesthesia Post Op Note
Vital Signs Stable-See Nursing Note: Yes (Pt oob to chair this am)
Airway Patent: Yes (NC- patient working on deep breathing exercises; encourages IS use)
Adequate Pain Control: Yes (Tylenol)
Change in Mental Status: No
Current Postoperative Nausea & Vomiting: No
Anesthesia Complications: No
General Anesthetic Recall: No
Unplanned Admission: No
Post Op Hydration Adequate: Yes
--- NOTE | 2025-09-25 08:11 | W.PN.INTV ---
Today's Communication / Plan
Recommendations
Insulin drip to stop today, then would recommend ISS to keep goal BG 110�140
Continue statin, and DAPT with ASA + Plavix
Postoperative management as per cardiothoracic surgery
Pain control
Cardiac rehab consult
Encourage incentive spirometer use
Outpatient pulmonary office visit to be arranged for lung nodule follow-up
No additional recommendations at this time. Once patient transferred to CVICU�telemetry status, Truck Cleaner/Pulmonary service will sign off. Please reconsult if there are any additional questions/concerns, or if patient's respiratory status
deteriorates.
Assessment
-
Assessment: 79-year-old male with a past medical history of CAD, gout and hypertension who presents for elective CABG. Patient known to cardiothoracic surgery service, with last office visit on 09/17/[address] Keys. Patient previously had a
abnormal CT calcium score study, which led to him getting a nuclear sestamibi stress test on 09/03/2025. Patient achieved 7 METS with 99% of maximum predicted heart rate although with below average exercise tolerance and the stress EKG was positive
for ischemia. Patient then underwent a left heart catheterization on 09/12/2025 showing severe obstructive multivessel CAD with normal LV filling pressures (LVEDP: 11 mmHg). Patient does have a good functional status, being active in sports
including softball and can tolerate daily activities without limitation. After further multidisciplinary team discussion, patient was recommended to undergo surgical revascularization, which the patient agreed to. Today, patient underwent CABG x 4
with left atrial appendage ligation with a 35mm clip. Patient tolerated the procedure well, and was transferred to the CVICU postoperatively, with Truck Cleaner service consulted for additional management/recommendations
Chronic conditions PROJECTOR OPERATOR: Gout, hypertension, CAD
Impression:
#Multivessel CAD s/p CABG x 4 (in-situ CARRION to LAD, Ao to RSVG to high diagonal sequential to OM, Ao to RSVG to RPDA) + left atrial appendage ligation with 35mm clip - POD #1
#Hypocalcemia
#Right upper lobe 4mm lung nodule (seen on pre-operative CT chest from 09/20/2025)
#Hypertension
#Gout
Plan:
Patient successfully extubated without incident on 09/24/2025. Currently on room air breathing comfortably saturating 98%
Maintain SpO2 >90-94%
prn nebulized bronchodilators - not currently bronchospastic
Encourage incentive spirometer
Pulmonary artery catheter parameters will be followed
Pressors/antihypertensive/inotropes/diuretics will be provided as needed
Maintain MAP>65
Replete electrolytes with K>4, Mg>2
Monitor chest tube output (mediastinal chest tubes x 2 and left pleural chest tube x 1)
Monitor hemoglobin
Monitor platelet count and coags
Transfuse blood products as needed to maintain Hb>7g/dL, plt>50k (given post-operative status)
CT surgery managing chest tubes - -> plan to remove the left pleural chest tube later today
Monitor blood sugar to maintain euglycemia with goal BG 110-140
Insulin drip per protocol - -> plan to stop insulin drip today
Regarding patient's small lung nodule seen in his posterior RUL from recent CT chest on 09/20/2025, I will see him in the pulmonary office to discuss next apps.
Aspiration precautions
DVT prophylaxis
Early nutrition
Early mobilization
Patient to be downgraded to CVICU�telemetry status today after insulin drip is turned off. Once patient is downgraded/transferred to CVICU�telemetry status, then Truck Cleaner/Pulmonary service will sign off. Please contact pulmonary service if
there are any additional questions or concerns. Thank you for allowing us to be involved in the care of this patient.
Total time spent today was 78 minutes for this encounter. Time includes reviewing laboratory test/imaging results, reviewing pertinent medical records, obtaining and reviewing medical history, performing an appropriate exam, ordering medications,
tests and procedures. Time also includes documentation of this encounter, coordinating patient care and communicating with other healthcare professionals. Total time does not include separately billed tests performed on this date of service.
Subjective Dataa
Subjective Data
Date of Service:
Date of Service: September 25, 2025
Chief Complaint: Truck Cleaner Follow Up
Subjective:
Patient was seen earlier this morning, resting in bed, says he feels well. Currently on room air breathing comfortably. Heart rate 70, and mediastinal chest tubes x 2 and left pleural chest tube x [address]
Review of Systems
General: Other (Negative unless mentioned above)
Objective Data
Data Reviewed
Vital Signs / I&O / Oxygen:
Vital Signs
Temp Pulse Resp BP Pulse Ox
98.4 F 92 20 125/70 93
09/25/25 12:00 09/25/25 12:15 09/25/25 12:00 09/25/25 12:01 09/25/25 12:01
Intake and Output
09/24/25 09/25/25 09/26/25
06:59 06:59 06:59
Intake Total 1039.7 / 1060.2 104.8 / 104.8
Output Total 1460 / 1505 620 / 620
Balance -420.3 / -444.8 -515.2 / -515.2
SaO2 93
Nasal Cannula flow liters per 2
minute
Physical Exam
General: Respiratory Distress (negative), Comfortable, Chills (negative) and Sweats (negative)
HEENT: Normocephalic and Anicteric
Cardiovascular: S1-S2 and Peripheral Edema (negative)
Respiratory: Wheeze (negative), Rhonchi (negative), Stridor (negative) and Chest Tube (Mediastinal chest tubes x [address] and left pleural chest tube x 1)
GI: Soft, Non Distended, Non Tender and Normal Bowel Sounds
Neurology: Awake, Alert and Tremors (negative)
Skin: Warm, Dry, Cyanosis (negative) and Jaundice (negative)
Labs/Micro/Reports
Lab Data
09/25/25 03:02
09/25/25 03:02
Laboratory Results
09/25/25
03:02
PT 16.3 H
INR 1.28
[2025-09-25 08:19] LABS: Glucose - Point of Care 115 mg/dl (70-99)
[2025-09-25] MEDS: FEOSOL 325 MG PO (08:30)
[2025-09-25] MEDS: SENOKOT 8.6 MG PO ×2 (08:30→20:04)
[2025-09-25] MEDS: PACERONE 200 MG PO ×3 (08:30→20:04)
[2025-09-25] MEDS: PLAVIX 75 MG PO (08:30)
[2025-09-25] MEDS: NEURONTIN 100 MG PO ×3 (08:31→20:04)
[2025-09-25] MEDS: LOW STRENGTH ASPIRIN 81 MG PO (08:31)
[2025-09-25] MEDS: ZYLOPRIM 100 MG PO (08:31)
[2025-09-25] MEDS: PROTONIX 40 MG PO (08:31)
[2025-09-25] MEDS: MAGNESIUM OXIDE 400 MG PO ×2 (08:31→20:04)
[2025-09-25] MEDS: LOPRESSOR PO (08:32)
[2025-09-25] MEDS: CRESTOR 20 MG PO (08:32)
[2025-09-25] MEDS: BACTROBAN 2% OINTMENT 1 APPLIC NASAL ×2 (08:32→20:05)
[2025-09-25] MEDS: VITAMIN C 500 MG PO (08:32)
--- NOTE | 2025-09-25 08:34 | PTCARENOTE ---
Received pt from night warehouse manager RN; pt AAOx3 and resting comfortably in chair; NSR on monitor and VSS; Epicardial V wires placed to back up VVI and no pacing noted; RIJ Cordis and PIV x1 patent; Insulin infusing per Glycemic protocol see flow
sheet for details; Lungs diminished; IS to 1500; CT x3 to -20 wall suction no air leak and no crepitus noted; hypoactive bowel sounds; Deutsch Catheter draining yellow urine; palpable pulses throughout; trace lower extremity edema noted; all surgical
sites C/D/I; see nursing documentation for further details.
[2025-09-25 09:06] LABS: Glucose - Point of Care 121 mg/dl (70-99)
[2025-09-25] MEDS: LASIX 40 MG IV (09:24)
[2025-09-25 11:53] LABS: Glucose - Point of Care 106 mg/dl (70-99)
--- NOTE | 2025-09-25 12:18 | PTCARENOTE ---
Assessment unchanged; NSR on monitor and VSS; Insulin drip discontinued to CTNP order; family at bedside and updated.
[2025-09-25] MEDS: LOPRESSOR 12.5 MG PO ×2 (12:58→20:04)
--- NOTE | 2025-09-25 14:17 | W.PN.CARDCBS ---
Addendum entered and electronically signed by Immanuel Barfield MD 09/25/25 15:29:
I saw and examined the patient.
The Industrial Relations Counselor's note was reviewed and I agree with the note.
Comment: Briefly, 79-year-old man past medical history of multivessel coronary disease who underwent CABG x 4 and left atrial appendage ligation on 09/24/2025
Resting comfortably in the CVICU at the time of my evaluation. No cardiac complaints.
Not requiring inotrope or pressor support
Extubated to room air
Maintaining sinus rhythm on review of telemetry
Appears euvolemic on exam. Cont IV Lasix to keep I's/O's balance even.
Agree with current cardiac meds: Aspirin/Plavix, high intensity statin, beta-josé miguel, amiodarone
Eventual cardiac rehab
Original Note:
Today's Communication / Plan
-
Continue postoperative care
In sinus rhythm
Impression / Plan
-
PCP: Gail Gamez
Primary fire manager: Marcus Davison
Impression:
Severe obstructive multivessel coronary artery disease
Status post CABG x 4 (CARRION to LAD, AO to RSVG to high diagonal sequential to OM, AO to RSVG to RPDA) and TITA ligation 09/24/2025
Hypertension
Gout
Elevated calcium score prompting stress test with perfusion defect prompting left heart cath notable for severe obstructive multivessel CAD
Previous cardiovascular testing:
Echo 08/27/2025: Normal LV/RV size and function, LVEF 60 to 65%, no significant valvular heart disease, aorta 3.9 cm at sinus of Valsalva, 3.7 cm at proximal segment of ascending aorta
Left heart cath 09/12/2025: Left main and proximal mid LAD heavily calcified with diffuse circumferential calcification. Left main with tubular 30 to 40% diffuse stenosis.
LAD: Proximal LAD heavily calcified with 40 to 50% proximal disease. D1 large vessel with moderate proximal disease. LAD after takeoff of diagonal branch with focal 80% stenosis.
Left circumflex: Diffuse proximal 50% disease. OM1 small vessel with critical ostial disease and may fill via bridging collaterals. OM 2 diffuse moderate LI's. 2 very well develop large caliber collaterals that supply large right sided posterior
left ventricular branch system.
RCA: Diffusely diseased and occluded at acute margin. All distal collaterals come from the left.
Plan:
- s/p CARRION to LAD, AO to RSVG to high diagonal sequential to OM, AO to RSVG to RPDA and TITA ligation 09/24/2025
- doing well
- off pressors
- in SR on review of tele with 1 brief 7 beat run of NSVT. EKG SR with suspected mild pericarditic changes. with mild rub on exam.
- hgb 11.4. continue asa, plavix
- high intensity statin for goal LDL <55
- cardiac rehab
- continue post op care
- d/w nursing
Progress Note - Brick Tester
Subjective
Date of Service: September 25, 2025
Doing well. With some mild postoperative pain
Objective
Labs:
09/25/25 03:02
09/25/25 03:02
Labs
Hgb 11.4 g/dL (13.0-18.0) L 09/25/25 03:02
Hct 33.0 % (39.0-52.0) L 09/25/25 03:02
Plt Count 178 10^3/uL (130-400) 09/25/25 03:02
PT 16.3 Sec (11.4-14.6) H 09/25/25 03:02
INR 1.28 09/25/25 03:02
APTT 32.3 Sec (23.4-35.0) 09/24/25 11:25
Sodium 133 mmol/L (135-145) L 09/25/25 03:02
Potassium 4.1 mmol/L (3.5-5.1) 09/25/25 03:02
BUN 22 mg/dl (9-20) H 09/25/25 03:02
Creatinine 1.0 mg/dL (0.7-1.3) 09/25/25 03:02
Glucose 107 mg/dl (70-99) H 09/25/25 03:02
Vital Signs and I&O:
Vital Signs
Temp Pulse Resp BP Pulse Ox
98.4 F 92 20 125/70 93
09/25/25 12:00 09/25/25 12:15 09/25/25 12:00 09/25/25 12:01 09/25/25 12:01
Vital Signs
Temp Pulse Resp BP Pulse Ox
98.4 F 92 20 125/70 93
09/25/25 12:00 09/25/25 12:15 09/25/25 12:00 09/25/25 12:01 09/25/25 12:01
Intake & Output
09/23/25 09/24/25 09/25/25 09/26/25
07:59 07:59 07:59 07:59
Intake Total 1060.2 / 1080.9 84.3 / 84.3
Output Total 1505 / 1585 575 / 575
Balance -444.8 / -504.1 -490.7 / -490.7
Physical Exam
Physical Exam
GEN: No distress, awake, alert, oriented x3
HEENT: supple, anicteric, mmm, EOMI
LUNGS: CTA bilaterally, no wheezes/rales
CV: Reg, S1/S2, no murmur, + rub
ABD: soft, BS+, NT/ND
EXT: No cyanosis, clubbing. Trace edema of bilateral lower extremity
NEURO: Gross non-focal
SKIN: Warm, pink, dry. No rash. Sternotomy incision clean dry and intact. Chest tubes in place
[2025-09-25] MEDS: FERRLECIT 110 MG IV (14:31)
--- NOTE | 2025-09-25 15:17 | CM ---
Reviewed chart. Met with Mr. Inman to review discharge plans. He states he is feeling okay. He states prior to admission he resides with his spouse in a two story home with one step to enter. He states he has a full flight of steps to get to
bedroom/full bathroom. He states he has a powder room on the first floor. He states prior to admission he was independent with ambulation and adls. He states he thinks he has a prescription plan and uses [facility]. He states his spouse will be
home to assist in his care if needed. Medical work-up in progress. The discharge plan is to return home with his spouse and a home visit by Transitional Care Nurse when medically stable.
--- NOTE | 2025-09-25 15:36 | PTCARENOTE ---
NSR on monitor and VSS; assessment unchanged; Left Pleural chest tube removed per CTNP order; pt OOB to chair with RN.
--- NOTE | 2025-09-25 20:00 | PTCARENOTE ---
assumed care of patient @ 1900. recieved pt laying in bed
Neuro- Aox3. MARIA DEL ROSARIO SOARES. Mild c/o pain 2/10 covered with tylenol
CV- NSR on tele. +Pulses, trace edema. BP slightly elevated, Metoprolol given.
Lungs- clear, diminished on room air satting mid 90s. 2 mediastinal chest tubes to wall suction, no air leak, tidaling or crepitus noted.
GI- hypoactive BS, no n/v
- bearden present draining clear dulce urine
Skin- MSI fannie , saphenous sites CDI FANNIE
Lines R IJ cordis with kvo, PIV both intact.
[2025-09-26] VITALS (17 sets, daily range): BP systolic 101–136; BP diastolic 57–92; PULSE 91; O2SAT 96–99; BMI 29.6
[2025-09-26 02:30] LABS: Hematocrit 32.3 % (39.0-52.0); Hemoglobin 10.7 g/dL (13.0-18.0); Mean Corp Hgb Conc. 33.1 g/dL (33.0-37.0); Mean Corpuscular Volume 93.9 fL (80.0-94.0); Platelet Count 169 10^3/uL (130-400); Red Cell Dist. Width 13.3 % (11.5-14.5)
[2025-09-26 02:49] LABS: Blood Urea Nitrogen 31 mg/dl (9-20); Calcium 8.7 mg/dl (8.4-10.2); Carbon Dioxide 29 mmol/L (22-30); Chloride 105 mmol/L (98-107); Estimated Creatinine Clearance 58 ml/min; Glucose 124 mg/dl (70-99); Magnesium 2.1 mg/dl (1.6-2.3); Potassium 4.0 mmol/L (3.5-5.1); Sodium 134 mmol/L (135-145); eGFR > 60.00
--- NOTE | 2025-09-26 04:09 | W.PN.CT ---
Today's Communication / Plan
-
Plan:
-No major issues overnight. Hemodynamically and neurologically intact
-Off all drips
-Cont. current meds (ASA, Plavix, Crestor, Lopressor, Amiodarone, Allopurinol)
-Consider D/C of temporary PW (pull)
-Consider D/C of remaining chest tubes: 2meds 65/140. On RA, O2 sats 96%. CxR this AM looks clear to my eyes. F/U official report
-Will d/c bearden catheter this AM @ 0600
-Will d/c insulin gtt today per protocol
-Will maintain temporary PW (likely pull tomorrow)
-Monitor hyponatremia, 133-> 134, diuresis today. Replete electrolytes
-Encourage use of IS
-OOB into chair/Ambulate
-Likely d/c home in 1-2 days
Assessment / Plan
-
Assessment:
-S/P Standard Sternotomy/Coronary artery bypass grafting x 4 (In situ CARRION to LAD, Ao to RSVG to high diagonal sequential to OM, Ao to RSVG to RPDA)/Endoscopic vein harvesting of right lower extremity/Left atrial appendage ligation [35 mm clip, [id number]
[id number]], by Dr. Keys, 09/24/25, pod#2
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
-Hypertension
-HLD
-Gout
-LVEF 60%
-Former tobacco use
-Prostate Ca S/P prostate seeding
-S/P Left knee replacement, 03/09/25
-S/P Right knee replacement, 05/2024
-S/P bilateral cataracts
-S/P Cardiac cath 09/12/25
-Acute postop blood loss/Anemia (2 bowels of cell saver)
-Acute postop atelectasis
-Acute postop hypovolemia with subsequent hypervolemia
-Acute postop hyponatremia
Discussed patient care with: Cardiology, Nursing, Respiratory Therapy, Pharmacy and Care Team
Subjective
Procedure
S/P Standard Sternotomy/Coronary artery bypass grafting x 4 (In situ CARRION to LAD, Ao to RSVG to high diagonal sequential to OM, Ao to RSVG to RPDA)/Endoscopic vein harvesting of right lower extremity/Left atrial appendage ligation [35 mm clip, SN
[id number]], by Dr. Keys, 09/24/25
-
Date of Service: September 26, 2025
Pt c/o mild incisional pain, otherwise feels well
Objective Data
-
Lab Results
09/26/25 02:17
09/26/25 02:17
PT 16.3 Sec (11.4-14.6) H 09/25/25 03:02
INR 1.28 09/25/25 03:02
APTT 32.3 Sec (23.4-35.0) 09/24/25 11:25
Vital Signs
Vital Signs
Temp Pulse Resp BP Pulse Ox
98.2 F 70 14 122/68 95
09/26/25 00:00 09/26/25 02:17 09/26/25 00:00 09/26/25 02:17 09/26/25 02:17
CT Intake/Output/Weight
09/25/25 09/25/25 09/26/25
06:59 18:59 06:59
Intake Total 993.4 / 1060.2 114.8 / 114.8
Output Total 625 / 1505 1045 / 1320 275 / 1320
Balance 368.4 / -444.8 -930.2 / -1205.2 -275 / -1205.2
SaO2: 95 (RA)
Physical Exam
-
General: Awake, Oriented and AOx3
Cardiovascular: Regular rate & rhythm, Irregular rate & rhythm, No Murmurs, No Rub and No Gallop
Respiratory: Decreased Breath Sounds (at bases, otherwise clear)
Sternum: Stable
Incision: Clean, Dry, Intact and Dressing Intact
Extremities: Other (+trace edema)
Data Reviewed
-
Lab Results: Results Reviewed
Medications: Active Meds Reviewed
Chest X-Ray: Report Reviewed and Image Reviewed
ECG: Report Reviewed and Image Reviewed
[2025-09-26] MEDS: TYLENOL 975 MG PO ×3 (06:07→22:00)
[2025-09-26] MEDS: VITAMIN C 500 MG PO (08:39)
[2025-09-26] MEDS: CRESTOR 20 MG PO (08:39)
[2025-09-26] MEDS: MAGNESIUM OXIDE 400 MG PO ×2 (08:39→20:50)
[2025-09-26] MEDS: LOW STRENGTH ASPIRIN 81 MG PO (08:39)
[2025-09-26] MEDS: LOPRESSOR 12.5 MG PO (08:39)
[2025-09-26] MEDS: PACERONE 200 MG PO ×3 (08:39→22:00)
[2025-09-26] MEDS: SENOKOT 8.6 MG PO (08:39)
[2025-09-26] MEDS: PROTONIX 40 MG PO (08:39)
[2025-09-26] MEDS: NEURONTIN 100 MG PO ×3 (08:40→22:00)
[2025-09-26] MEDS: PLAVIX 75 MG PO (08:40)
[2025-09-26] MEDS: KCL 20 MEQ PO (08:40)
[2025-09-26] MEDS: FEOSOL 325 MG PO (08:40)
[2025-09-26] MEDS: ZYLOPRIM 100 MG PO (08:40)
[2025-09-26] MEDS: BACTROBAN 2% OINTMENT 1 APPLIC NASAL ×2 (08:40→20:54)
[2025-09-26] MEDS: LASIX 40 MG IV (08:40)
--- NOTE | 2025-09-26 08:45 | PTCARENOTE ---
Patient received from hourly shift manager RN; AAOx3, responds spontaneously to RN and follows commands; VSS; SR with PVC's on monitor; Epicardial V-wire present; +1 B/L LE edema present; +2 DP and radial pulses; Lungs clear; SpO2 93-99% on RA;
Non-productive, occasional cough; CTx2 connected to -20 cm wall suction draining serosanguineous drainage - no air leak, tidaling, or crepitus noted; Patient passing gas; DTV; Surgical sites intact; RIJ Cordis with KVO infusing; PIVx1 present; See
nursing documentation for further information
--- NOTE | 2025-09-26 10:21 | CM ---
Reviewed chart Met with and Mrs. Inman to review discharge plans. He states he is feeling stronger. We reviewed a home visit by the Transitional Care Nurse. He is agreeable to a home visit. Prior to admission he resides with his spouse
in a two story home with one step to enter. He has a full flight of steps to get to bedroom/full bathroom. He has a powder room on the first floor. Prior to admission he was independent with ambulation and adls. He he has a prescription plan and
uses [facility]. His spouse will be home to assist in his care if needed. Medical work-up in progress. The discharge plan is to return home with his spouse and a home visit by Transitional Care Nurse when medically stable.
--- NOTE | 2025-09-26 10:33 | W.PN.CARDCBS ---
Addendum entered and electronically signed by Todd Crouch MD 09/26/25 11:22:
I saw and examined the patient.
The Driver Wheelchair's note was reviewed and I agree with the note.
Comment:
GEN: No distress, awake, Ox3
HEENT: supple, anicteric, mmm
LUNGS: CTA, no wheezes/rales
CV: Reg, S1/S2, no rub
ABD: soft, BS+, NT/ND
EXT: No edema
NEURO: Gross non-focal
SKIN: sternotomy
Plan:
He overall is doing well status post CABG.
Remains in sinus rhythm. Hopefully chest tubes removed today.
Continue Metoprolol/Amiodarone.
Cont ASA/Plavix
Original Note:
Today's Communication / Plan
-
doing well
continue post op care
diurese
in SR
Impression / Plan
-
PCP: Gail Gamez
Primary mortgage manager: Marcus aDvison
Impression:
Severe obstructive multivessel coronary artery disease
Status post CABG x 4 (CARRION to LAD, AO to RSVG to high diagonal sequential to OM, AO to RSVG to RPDA) and TITA ligation 09/24/2025
Hypertension
Gout
Elevated calcium score prompting stress test with perfusion defect prompting left heart cath notable for severe obstructive multivessel CAD
Previous cardiovascular testing:
Echo 08/27/2025: Normal LV/RV size and function, LVEF 60 to 65%, no significant valvular heart disease, aorta 3.9 cm at sinus of Valsalva, 3.7 cm at proximal segment of ascending aorta
Left heart cath 09/12/2025: Left main and proximal mid LAD heavily calcified with diffuse circumferential calcification. Left main with tubular 30 to 40% diffuse stenosis.
LAD: Proximal LAD heavily calcified with 40 to 50% proximal disease. D1 large vessel with moderate proximal disease. LAD after takeoff of diagonal branch with focal 80% stenosis.
Left circumflex: Diffuse proximal 50% disease. OM1 small vessel with critical ostial disease and may fill via bridging collaterals. OM 2 diffuse moderate LI's. 2 very well develop large caliber collaterals that supply large right sided posterior
left ventricular branch system.
RCA: Diffusely diseased and occluded at acute margin. All distal collaterals come from the left.
Plan:
- s/p CARRION to LAD, AO to RSVG to high diagonal sequential to OM, AO to RSVG to RPDA and TITA ligation 09/24/2025
- continues to do well
- diurese
- in SR overnight on review of tele. continue amio/BB
- hgb 10.7. continue asa, plavix
- high intensity statin for goal LDL <55
- BPs stable. Prior to admission was on Norvasc 2.5 mg daily, Toprol 25 mg daily
- cardiac rehab/ambulation
- continue post op care
- d/w nursing. d/w at bedside
Progress Note - Bottom Turner
Subjective
Date of Service: September 26, 2025
No issues. Feeling well.
Objective
Labs:
09/26/25 02:17
09/26/25 02:17
Labs
Hgb 10.7 g/dL (13.0-18.0) L 09/26/25 02:17
Hct 32.3 % (39.0-52.0) L 09/26/25 02:17
Plt Count 169 10^3/uL (130-400) 09/26/25 02:17
PT 16.3 Sec (11.4-14.6) H 09/25/25 03:02
INR 1.28 09/25/25 03:02
APTT 32.3 Sec (23.4-35.0) 09/24/25 11:25
Sodium 134 mmol/L (135-145) L 09/26/25 02:17
Potassium 4.0 mmol/L (3.5-5.1) 09/26/25 02:17
BUN 31 mg/dl (9-20) H 09/26/25 02:17
Creatinine 1.0 mg/dL (0.7-1.3) 09/26/25 02:17
Glucose 124 mg/dl (70-99) H 09/26/25 02:17
Vital Signs and I&O:
Vital Signs
Temp Pulse Resp BP Pulse Ox
98.7 F 83 16 135/82 95
09/26/25 08:00 09/26/25 10:00 09/26/25 08:00 09/26/25 09:50 09/26/25 09:39
Vital Signs
Temp Pulse Resp BP Pulse Ox
98.7 F 83 16 135/82 95
09/26/25 08:00 09/26/25 10:00 09/26/25 08:00 09/26/25 09:50 09/26/25 09:39
Intake & Output
09/24/25 09/25/25 09/26/25 09/27/25
07:59 07:59 07:59 07:59
Intake Total 1060.2 / 1080.9 94.3 / 234.3 380 / 380
Output Total 1505 / 1585 1400 / 1440 340 / 340
Balance -444.8 / -504.1 -1305.7 / -1205.7 40 / 40
Physical Exam
Physical Exam
GEN: No distress, awake, alert, oriented x3
HEENT: supple, anicteric, mmm, EOMI
LUNGS: CTA bilaterally, no wheezes/rales
CV: Reg, S1/S2, no murmur
ABD: soft, BS+, NT/ND
EXT: No cyanosis, clubbing. 1+ edema of bilateral lower extremity
NEURO: Gross non-focal
SKIN: Warm, pink, dry. No rash. Sternotomy incision clean dry and intact. Chest tube in place
--- NOTE | 2025-09-26 12:30 | PTCARENOTE ---
Epicardial V-wire pulled by TREVER Melvin at bedside - no complications noted and VSS; CTx2 removed by RN at bedside - no complications noted; Patient with 2 episodes of diarrhea; Patient resting comfortably in bed at this time
[2025-09-26] MEDS: FERRLECIT 110 MG IV (13:52)
--- NOTE | 2025-09-26 17:54 | PTCARENOTE ---
Patient ambulating in hallways; Patient with no complaints at this time and resting comfortably in bed
--- NOTE | 2025-09-26 20:00 | PTCARENOTE ---
Patient received from day shift RN; AAOx3, w/o complaints of pain; VSS; SR with PVC's on monitor; Lungs clear; O2 95-99% on RA; GI and wnl; all surgical sites CDI; RIJ Cordis wnl; PIVx1 wnl; See worklist for detailed assessment
[2025-09-26] MEDS: LOPRESSOR 25 MG PO (20:50)
[2025-09-26] MEDS: SENOKOT PO (20:55)
[2025-09-27] VITALS (7 sets, daily range): BP systolic 98–134; BP diastolic 60–72; PULSE 86; O2SAT 97–98; BMI 29.3
--- NOTE | 2025-09-27 | PTCARENOTE ---
no change from previous assessment
--- NOTE | 2025-09-27 02:36 | W.PN.CT ---
Today's Communication / Plan
-
-pod #3
-no issues overnight, no complaints
-ambulated
-CTs and pw are out 09/26
-wt is up 7 lbs on 09/26 from preop. Diuresed with 40 iv Lasix - UO 500/1525 in 12/24 hrs
-weaned off O2 - pox 97 on RA
-current meds (ASA, Plavix, Crestor, Amio, Lopressor 25 bid, iron, Protonix)
-encourage IS, OOB, ambulate
Assessment / Plan
-
Assessment:
-S/P Standard Sternotomy/Coronary artery bypass grafting x 4 (In situ CARRION to LAD, Ao to RSVG to high diagonal sequential to OM, Ao to RSVG to RPDA)/Endoscopic vein harvesting of right lower extremity/Left atrial appendage ligation [35 mm clip, SN
[id number]], by Dr. Keys, 09/24/25, pod#3
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
-Hypertension
-HLD
-Gout
-LVEF 60%
-Former tobacco use
-Prostate Ca S/P prostate seeding
-S/P Left knee replacement, 03/09/25
-S/P Right knee replacement, 05/2024
-S/P bilateral cataracts
-S/P Cardiac cath 09/12/25
-Acute postop blood loss/Anemia (2 bowels of cell saver)
-Acute postop atelectasis
-Acute postop hypovolemia with subsequent hypervolemia
-Acute postop hyponatremia
Discussed patient care with: Nursing and Care Team
Subjective
Procedure
S/P Standard Sternotomy/Coronary artery bypass grafting x 4 (In situ CARRION to LAD, Ao to RSVG to high diagonal sequential to OM, Ao to RSVG to RPDA)/Endoscopic vein harvesting of right lower extremity/Left atrial appendage ligation [35 mm clip, SN
[id number]], by Dr. Keys, 09/24/25
-
Date of Service: September 27, 2025
Objective Data
-
PT 16.3 Sec (11.4-14.6) H 09/25/25 03:02
INR 1.28 09/25/25 03:02
APTT 32.3 Sec (23.4-35.0) 09/24/25 11:25
Vital Signs
Vital Signs
Temp Pulse Resp BP Pulse Ox
98.4 F 68 16 101/57 97
09/26/25 23:00 09/27/25 01:00 09/26/25 23:00 09/26/25 23:42 09/26/25 20:51
CT Intake/Output/Weight
09/26/25 09/26/25 09/27/25
06:59 18:59 06:59
Intake Total 1010 / 1010
Output Total 400 / 1445 1065 / 1565 500 / 1565
Balance -400 / -1330.2 -55 / -555 -500 / -555
SaO2: 97
Physical Exam
-
General: Awake and AOx3
Cardiovascular: Regular rate & rhythm, No Murmurs and No Rub
Respiratory: Decreased Breath Sounds
Sternum: Stable
Incision: Clean, Dry and Intact
Extremities: Other (trace edema b/l)
Abdomen: soft, nontender, nondistended, + bowel sounds
Data Reviewed
-
Lab Results: Results Reviewed
Medications: Active Meds Reviewed
Chest X-Ray: Report Reviewed and Image Reviewed
ECG: Report Reviewed and Image Reviewed
[2025-09-27 04:27] LABS: Hematocrit 32.4 % (39.0-52.0); Hemoglobin 10.5 g/dL (13.0-18.0); Mean Corp Hgb Conc. 32.4 g/dL (33.0-37.0); Mean Corpuscular Volume 95.0 fL (80.0-94.0); Platelet Count 185 10^3/uL (130-400); Red Cell Dist. Width 13.3 % (11.5-14.5)
[2025-09-27 05:00] LABS: Calcium 8.7 mg/dl (8.4-10.2); Chloride 103 mmol/L (98-107); Magnesium 2.2 mg/dl (1.6-2.3); Potassium 3.8 mmol/L (3.5-5.1); Sodium 135 mmol/L (135-145)
--- NOTE | 2025-09-27 05:00 | PTCARENOTE ---
no change from previous assessment
[2025-09-27 05:13] LABS: Blood Urea Nitrogen 30 mg/dl (9-20); Carbon Dioxide 31 mmol/L (22-30); Estimated Creatinine Clearance 58 ml/min; Glucose 107 mg/dl (70-99); eGFR > 60.00
[2025-09-27] MEDS: TYLENOL PO ×2 (06:43→13:50)
[2025-09-27] MEDS: NEURONTIN 100 MG PO (07:53)
[2025-09-27] MEDS: BACTROBAN 2% OINTMENT 1 APPLIC NASAL (07:53)
[2025-09-27] MEDS: PLAVIX 75 MG PO (07:53)
[2025-09-27] MEDS: PACERONE 200 MG PO (07:53)
[2025-09-27] MEDS: PROTONIX 40 MG PO (07:54)
[2025-09-27] MEDS: CRESTOR 20 MG PO (07:54)
[2025-09-27] MEDS: ZYLOPRIM 100 MG PO (07:54)
[2025-09-27] MEDS: VITAMIN C 500 MG PO (07:54)
[2025-09-27] MEDS: LOW STRENGTH ASPIRIN 81 MG PO (07:54)
[2025-09-27] MEDS: KCL 20 MEQ PO (07:54)
[2025-09-27] MEDS: FEOSOL 325 MG PO (07:54)
[2025-09-27] MEDS: MAGNESIUM OXIDE 400 MG PO (07:54)
[2025-09-27] MEDS: LOPRESSOR 25 MG PO (07:55)
[2025-09-27] MEDS: SENOKOT PO (07:55)
[2025-09-27] MEDS: LASIX 40 MG IV (07:55)
--- NOTE | 2025-09-27 08:54 | PTCARENOTE ---
Received pt from table games shift manager RN at 0700; Pt AAOX3 and resting comfortably in chair; NSR on monitor and VSS; RIJ Cordis and PIV x1 patent; Lungs diminished; IS to 2000; positive bowel sounds; pt voiding yellow urine; palpable pulses throughout; trace
generalized edema; all surgical sites C/D/I; see nursing documentation for further details.
[2025-09-27] MEDS: LOPRESSOR 12.5 MG PO (10:29)
--- NOTE | 2025-09-27 10:54 | W.PN.CARDCBS ---
Addendum entered and electronically signed by Todd Crouch MD 09/27/25 12:20:
I saw and examined the patient.
The Chain Pegger's note was reviewed and I agree with the note.
Comment: GEN: No distress, awake, Ox3
HEENT: supple, anicteric, mmm
LUNGS: CTA, no wheezes/rales
CV: Reg, S1/S2, no murmur/rub
ABD: soft, BS+, NT/ND
EXT: trace edema
NEURO: Gross non-focal
SKIN: No rash
PLan:
Looks great. Remains in sinus rhythm. Continue aspirin, Plavix, and Crestor.
He is mildly volume overload will continue Lasix
Continue amiodarone and metoprolol
Original Note:
Today's Communication / Plan
-
DC today
diuresis
continue asa, plavix, crestor
OP follow up with [facility]
Impression / Plan
-
PCP: aGil Gamez
Primary roadway technician: Marcus Davison
Impression:
Severe obstructive multivessel coronary artery disease
Status post CABG x 4 (CARRION to LAD, AO to RSVG to high diagonal sequential to OM, AO to RSVG to RPDA) and TITA ligation 09/24/2025
Hypertension
Gout
Elevated calcium score prompting stress test with perfusion defect prompting left heart cath notable for severe obstructive multivessel CAD
Previous cardiovascular testing:
Echo 08/27/2025: Normal LV/RV size and function, LVEF 60 to 65%, no significant valvular heart disease, aorta 3.9 cm at sinus of Valsalva, 3.7 cm at proximal segment of ascending aorta
Left heart cath 09/12/2025: Left main and proximal mid LAD heavily calcified with diffuse circumferential calcification. Left main with tubular 30 to 40% diffuse stenosis.
LAD: Proximal LAD heavily calcified with 40 to 50% proximal disease. D1 large vessel with moderate proximal disease. LAD after takeoff of diagonal branch with focal 80% stenosis.
Left circumflex: Diffuse proximal 50% disease. OM1 small vessel with critical ostial disease and may fill via bridging collaterals. OM 2 diffuse moderate LI's. 2 very well develop large caliber collaterals that supply large right sided posterior
left ventricular branch system.
RCA: Diffusely diseased and occluded at acute margin. All distal collaterals come from the left.
Plan:
- s/p CARRION to LAD, AO to RSVG to high diagonal sequential to OM, AO to RSVG to RPDA and TITA ligation 09/24/2025
- Doing great
- Chest tubes out 09/26
- Ambulatory
- Continue diuresis as per CT surgery
- In sinus rhythm on review of telemetry. Continue Amio while admitted. Beta-josé miguel was increased this morning per CT surgery for heart rates greater than 70
- Continue aspirin, Plavix, high intensity statin
- Prior to admission was on Norvasc 2.5 mg daily, Toprol 25 mg daily
- cardiac rehab
- continue post op care
- Plan for discharge today
- OP cardiac follow up with [facility]
- d/w nursing, CT surg SCHOOL SOCIAL WORKER
Progress Note - Pilot Safety Inspector
Subjective
Date of Service: September 27, 2025
Feeling well. Eager for discharge
Objective
Labs:
09/27/25 04:05
09/27/25 04:05
Labs
Hgb 10.5 g/dL (13.0-18.0) L 09/27/25 04:05
Hct 32.4 % (39.0-52.0) L 09/27/25 04:05
Plt Count 185 10^3/uL (130-400) 09/27/25 04:05
PT 16.3 Sec (11.4-14.6) H 09/25/25 03:02
INR 1.28 09/25/25 03:02
APTT 32.3 Sec (23.4-35.0) 09/24/25 11:25
Sodium 135 mmol/L (135-145) 09/27/25 04:05
Potassium 3.8 mmol/L (3.5-5.1) 09/27/25 04:05
BUN 30 mg/dl (9-20) H 09/27/25 04:05
Creatinine 1.0 mg/dL (0.7-1.3) 09/27/25 04:05
Glucose 107 mg/dl (70-99) H 09/27/25 04:05
Vital Signs and I&O:
Vital Signs
Temp Pulse Resp BP Pulse Ox
98.1 F 75 20 134/64 98
09/27/25 07:00 09/27/25 07:26 09/27/25 07:00 09/27/25 07:26 09/27/25 08:59
Vital Signs
Temp Pulse Resp BP Pulse Ox
98.1 F 75 20 134/64 98
09/27/25 07:00 09/27/25 07:26 09/27/25 07:00 09/27/25 07:26 09/27/25 08:59
Intake & Output
09/25/25 09/26/25 09/27/25 09/28/25
07:59 07:59 07:59 07:59
Intake Total 1060.2 / 1080.9 94.3 / 234.3 1010 / 1010
Output Total 1505 / 1585 1400 / 1440 1865 / 1865
Balance -444.8 / -504.1 -1305.7 / -1205.7 -855 / -855
Physical Exam
Physical Exam
GEN: No distress, awake, alert, oriented x3. sitting in chair
HEENT: supple, anicteric, mmm, EOMI
LUNGS: CTA bilaterally, no wheezes/rales
CV: Reg, S1/S2, no murmur
ABD: soft, BS+, NT/ND
EXT: No cyanosis, clubbing. 1+ edema of bilateral lower extremity
NEURO: Gross non-focal
SKIN: Warm, pink, dry. No rash. Sternotomy incision clean dry and intact.
--- NOTE | 2025-09-27 11:38 | PTCARENOTE ---
NSR on monitor and VSS; assessment unchanged; RIJ Cordis removed per CTNP order; pt showered self with CHG soap without difficulties; pt resting comfortably in chair.
--- NOTE | 2025-09-27 12:29 | CM ---
Reviewed chart. Met with and Mrs. Inman to review discharge plans. He states he is feeling well and maybe able to go home soon. We reviewed a home visit by the Transitional Care Nurse. He is agreeable to a home visit. Prior to admission he
resides with his spouse in a two story home with one step to enter. He has a full flight of steps to get to bedroom/full bathroom. He has a powder room on the first floor. Prior to admission he was independent with ambulation and adls. He he has
a prescription plan and uses [facility]. His spouse will be home to assist in his care if needed. Medical work-up in progress. The discharge plan is to return home with his spouse and a home visit by Transitional Care Nurse when medically
stable.
--- NOTE | 2025-09-27 13:45 | W.DCSUMMARY ---
Discharge Summary
Discharge Data
Date of Admission: 09/24/25
Date of Discharge: 09/27/25
-
Pending Results: No
Hospital Course
Primary care physician: Gail Gamez
Outpatient car body designer: Donald Davison
Inpatient consultants: [facility] cardiology, pulmonary trackman
Procedures:
1. CABG, oleft atrial appendage clip (09/24/25)
Primary Diagnosis:
1. triple vessel coronary artery disease
Secondary Diagnoses:
1. Hypertension
2. HLD
3. Gout
4. Prostate Ca S/P prostate seeding
5. OA s/p S/P Left knee replacement, 03/09/25, S/P Right knee replacement, 05/2024
6. S/P bilateral cataract extraction
-Acute postop blood loss/Anemia (2 bowels of cell saver)
-Acute postop atelectasis
-Acute postop hypovolemia with subsequent hypervolemia
-Acute postop hyponatremia
HPI: 79 year old male was electively admitted on for CABG due to triple vessel coronary disease
Hospital course: Patient was taken to the operating room and underwent CABG x 4 (CARRION-LAD; SVG-Diag and OM, SVG-RPDA) and left atrial appendage exclusion #35mm clip by DR. Manoj Sherwood. Post procedure REMY reported an EF of 60%. For further
details, pleasse refer to operative report. Patient received no introp blood products and returned to CVICU on Levophed, Insulin and Precedex. He was extubated the evening of surgery.Levophed was weaned off on POD #1. Patient was delined and,
aspirin/Plavix started. Left pleural chest tube was removed.On POD #2, temporary ventricular pacing wire and mediastinal chest tube were removed. Patient was diuresed. The Right IJ was removed on POD #3 and beta josé miguel dose increased to 37.5mg
BID. Patient ambulated and completed steps with cardiac rehab. He is deemed stable for discharge to home.
Home medication changes:
Stop amlodipine
increase metoprolol to 37.5mg BID
Discharge Plan
-
Patient Disposition: Home (Routine Discharge)
Discharge Diagnosis/Procedures: CABG x 4, Left atrial appendage clip (09/24/25)
Condition: Good
Diet: Low Cholesterol and Low Sodium
Activity: No strenuous activity
Driving Restrictions: Not until seen by your Dr
Bathing Restrictions: OK to Shower
Other Services: Cardiac Rehab
Specialty Instructions: Weigh Daily- Call MD for wt gain/loss 3 lbs overnight/5 lbs in 1 week
Activity Restrictions/Additional Instructions:
Call [facility] Cardiac Rehab to schedule your Outpatient Therapy for 5 weeks out. Contact their facility at [phone]
Referrals:
CT Transitional Care Nurse [Outside] - in one to two days
Referral Note:
The Cardiothoracic Transitional Care Nurse will call you to set up a visit in 1-2 days.
Shelbi Davison MD [Affiliate, Cardiology] - 11/05/25 1:15 pm
Zeeshan Pretty MD [Active, Pulmonary Medicine] - in four to six weeks
Referral Note: For follow up a lung nodule seen incidentally on CT imaging
Gail Gamez MD [Family Provider, Family Practice] - in four to six weeks
Referral Note: Please make an appointment in four to six weeks.
Karol Russo CRNP [Specified Professional Personl, Cardiac Surgery] - 10/25/25 1:00 pm
Prescriptions:
New
acetaminophen 325 mg Tablet
650 mg PO Q4HPRN PRN (Reason: mild pain,headache,temp >101F ) Qty: 0 0RF
cyclobenzaprine 10 mg Tablet
5 mg PO Q8HPRN PRN (Reason: muscle spasm) Qty: 10 0RF
clopidogrel 75 mg Tablet
75 mg PO DAILY Qty: 30 2RF
pantoprazole 40 mg Tablet,Delayed Release (Dr/Ec)
40 mg PO DAILY Qty: 30 2RF
gabapentin 100 mg Capsule
100 mg PO TID Qty: 30 0RF
oxycodone 5 mg Tablet
5 mg PO Q4HPRN PRN (Reason: severe pain) Qty: 10 0RF
metoprolol tartrate 25 mg Tablet
37.5 mg PO Q12 Qty: 60 2RF
furosemide [Lasix] 20 mg tablet
20 mg PO DAILY Qty: 7 0RF
Rx Instructions:
Take daily for 7 days, then stop
Continued
allopurinol 100 mg Tablet
100 mg PO DAILY
aspirin 81 mg Tablet
81 mg PO DAILY
rosuvastatin 20 mg Tablet
20 mg PO DAILY
Discontinued
amlodipine 2.5 mg Tablet
2.5 mg PO DAILY
metoprolol succinate 25 mg Tablet Extended Release 24 Hr
25 mg PO DAILY
Discharge Orders:
Discharge Patient (As Directed); Ordered 09/27/25
Ordered By: Elzbieta Willingham
Care Plan Goals
Care Plan Goals:
Problem: Readiness for enhanced knowledge related to diagnosis and treatment plan
Goal: Understand your diagnosis and treatment plan needs, including medications if applicable.
Instructions: Know your diagnosis, underlying causes and treatment plan options, including medications if applicable. Consult with your health care team to learn about your diagnosis and treatment plan, including medications if applicable.
Discharge Date and Time
Print Language: FRENCH
== END 2025-09-27 15:23 | disposition home or self-care (01) | DRG 236 ==
LOC: CVICU 05:03
PROVIDERS: Physician Assistant Medical; ADMITTING PHYSICIAN Thoracic Surgery (Cardiothoracic Vascular Surgery); CONSULT PHYSICIAN Internal Medicine Critical Care Medicine; FAMILY PHYSICIAN Family Medicine
PROC: 5A1221Z Performance of Cardiac Output, Continuous (ICD-10-PCS; 2025-09-24)
PROC: B24BZZ4 Ultrasonography of Heart with Aorta, Transesophageal (ICD-10-PCS; 2025-09-24)
PROC: 021209W Bypass Coronary Artery, Three Arteries from Aorta with Autologous Venous Tissue, Open Approach (ICD-10-PCS; 2025-09-24)
PROC: 06BP4ZZ Excision of Right Saphenous Vein, Percutaneous Endoscopic Approach (ICD-10-PCS; 2025-09-24)
PROC: 02L70CK Occlusion of Left Atrial Appendage with Extraluminal Device, Open Approach (ICD-10-PCS; 2025-09-24)
PROC: 02100Z9 Bypass Coronary Artery, One Artery from Left Internal Mammary, Open Approach (ICD-10-PCS; 2025-09-24)
DX: I25.10 Atherosclerotic heart disease of native coronary artery without angina pectoris (principal); D62 Acute posthemorrhagic anemia; J98.11 Atelectasis; E87.1 Hypo-osmolality and hyponatremia; R94.39 Abnormal result of other cardiovascular function study; I10 Essential (primary) hypertension; M10.9 Gout, unspecified; I35.8 Other nonrheumatic aortic valve disorders; R91.1 Solitary pulmonary nodule; E83.51 Hypocalcemia; E78.5 Hyperlipidemia, unspecified; E86.1 Hypovolemia; E87.70 Fluid overload, unspecified; Z96.653 Presence of artificial knee joint, bilateral; Z87.891 Personal history of nicotine dependence; Z82.49 Family history of ischemic heart disease and other diseases of the circulatory system; Z88.8 Allergy status to other drugs, medicaments and biological substances; Z91.041 Radiographic dye allergy status; Z79.82 Long term (current) use of aspirin; Z79.899 Other long term (current) drug therapy; Z85.46 Personal history of malignant neoplasm of prostate; Z92.3 Personal history of irradiation; Z98.41 Cataract extraction status, right eye; Z98.42 Cataract extraction status, left eye
CPT/HCPCS: 36415; 71045; 71250; 80048; 80053; 81003; 81015; 82248; 82330; 82565; 82805; 82947; 82962; 83036; 83605; 83735; 84132; 84302; 84520; 85014; 85018; 85025; 85027; 85049; 85610; 85730; 86850; 86900; 86901; 86920; 87070; 93005; 93312; 93320; 93325; 93880; 93970; 94002; J2916